=== PATIENT | female | born 1950 | race Caucasian/White ===

== ENCOUNTER 2017-11-10 07:27 | Inpatient (IN) | payer OTHER, MEDICARE ==
[~2017-11-10 07:27] MED LIST: POVIDONE-IODINE 20 ML in SODIUM CL IRRIG SOLUTION 500 ML IRR ONE; ROPIVACAINE 0.2% 80 MG, EPINEPHrine 0.2 MG, KETOROLAC TROMETHAMINE 30 MG in SYRINGE 0 ML IU ONE; TRANEXAMIC ACID 1,000 MG in NS 100 ML IV ONE
[2017-11-10] MEDS ORDERED: ceFAZolin 1 GM/5 ML SYR ONE (07:37)
[2017-11-10] MEDS ORDERED: FAMOTIDINE 20 MG TAB PO ONE (07:54)
[2017-11-10] MEDS ORDERED: DEXAMETHASONE 4 MG/ML VIAL IVP ONE (07:54)
[2017-11-10] MEDS ORDERED: GABAPENTIN 300 MG CAP PO ONE (07:54)
[2017-11-10] MEDS ORDERED: ACETAMINOPHEN 325 MG TAB PO ONE (07:54)
[2017-11-10] MEDS ORDERED: ONDANSETRON 4 MG/2 ML VIAL IVP ONE (07:54)
[2017-11-10] MEDS ORDERED: ceFAZolin 2 GM/DEXTROSE 100 ML IV ONE (07:54)
[2017-11-10] MEDS ORDERED: LR 1,000 ML IV ONE (07:56)
[2017-11-10] MEDS ORDERED: LIDOCAINE 1% 2 ML INJ ID PRN (07:56)
[2017-11-10] MEDS ORDERED: ceFAZolin 2 GM/SWFI 2 GM/20 ML SYR IVP ONE (08:30)
--- NOTE | 2017-11-10 08:59 | PDHPUP ---
History & Physical Update H&P update statement: This history and physical update is based on an assessment of the patient which was completed after admission or registration (within 24 hours), but prior to the surgery/procedure. H&P update: H&P reviewed & patient examined
--- NOTE | 2017-11-10 09:24 | PDANEPAE ---
ANE History of Present Illness right ELIEL ANE Past Medical History - Cardiovascular History Hx Hypertension: Yes Hx Arrhythmias: No Hx Chest Pain: No Hx Coronary Artery / Peripheral Vascular Disease: No Hx CHF / Valvular Disease: No Hx Palpitations: No - Pulmonary History Hx COPD: No Hx Asthma/Reactive Airway Disease: No Hx Recent Upper Respiratory Infection: No Hx Oxygen in Use at Home: No Hx Sleep Apnea: No Sleep Apnea Screening Result - Last Documented: Negative - Neurologic History Hx Cerebrovascular Accident: No Hx Seizures: No Hx Dementia: No - Endocrine History Hx Diabetes: Yes Endocrine History Comment: DM II - Renal History Hx Renal Disorders: No - Liver History Hx Hepatic Disorders: No Hepatic History Comment: RGEGIE - Neurological & Psychiatric Hx Hx Neurological and Psychiatric Disorders: No - Cancer History Hx Cancer: No - Congenital Disorder History Hx Congenital Disorders: No - GI History Hx Gastrointestinal Disorders: Yes Gastrointestinal History Comment: DIVERTICULITIS. ACID REFLUX - Other Health History Other Health History: NEG - Chronic Pain History Chronic Pain: Yes (R HIP) - Surgical History Prior Surgeries: CHOLECYSTECTOMY. HYSTERECTOMY. OOPHERECTOMY ANE Review of Systems Review of systems is: negative Review of Systems: - Exercise capacity Exercise capacity: >=4 METS METS (RN): 4 METS ANE Patient History - Allergies Allergies/Adverse Reactions: No Known Allergies Allergy (Verified 11/04/17 11:30) - Home Medications Home Medications: Aspirin [Aspirin 81mg (*)] 81 mg PO HS 11/04/17 [Last Taken 11/01/17] Atorvastatin Calcium [Lipitor 10 mg (*)] 10 mg PO HS 11/04/17 [Last Taken 21:30] Cholecalciferol Vit D3 [Vitamin D3 (*)] 5,000 units PO HS 11/04/17 [Last Taken 11/01/17] Herbals/Supplements -Info Only 1 ea PO DAILY 11/04/17 [Last Taken 11/09/17 21:30 ] Lisinopril/Hctz 10/12.5 mg [Zestoretic/Prinzide 10/12.5MG (*)] 1 ea PO HS [Last Taken 11/09/17 21:30] Multivitamins [Multivitamin (*)] 1 each PO HS 11/04/17 [Last Taken 11/09/17 21: 30] PARoxetine HCL [Paxil 30mg (*)] 30 mg PO HS 11/04/17 [Last Taken 11/09/17 21:30] Pantoprazole Sodium [Protonix 40mg (*)] 40 mg PO HS 11/04/17 [Last Taken 21:30] amLODIPine BESYLATE [Norvasc 5 mg (*)] 5 mg PO HS 11/04/17 [Last Taken 11/09/17 21:30] metFORMIN SR [Glucophage XR 500 mg (*)] 500 mg PO HS 11/04/17 [Last Taken ] - NPO status NPO Status: no food or drink >8 hours NPO Since - Liquids (Date): 11/09/17 NPO Since - Liquids (Time): 21:30 NPO Since - Solids (Date): 11/09/17 NPO Since - Solids (Time): 18:30 - Anes Hx Anes Hx: post operative nausea - Smoking Hx Smoking Status: Former smoker - Alcohol Use Alcohol Use: Occasionally - Family Anes Hx Family Anes Hx: none Family Hx Anesthesia Complications: NEG ANE Labs/Vital Signs - Vital Signs Blood Pressure: 119/78 Heart Rate: 79 Respiratory Rate: 16 O2 Sat (%): 93 Height: 156.21 cm Weight: 73.482 kg ANE Physical Exam - Airway Neck exam: FROM Mallampati Score: Class 2 - Pulmonary Pulmonary: no respiratory distress - Cardiovascular Cardiovascular: regular rate and rhythym - ASA Status ASA Status: II ANE Anesthesia Plan Anesthesia Plan: spinal
[2017-11-10] MEDS ORDERED: MIDAZOLAM 2 MG/2 ML VIAL IVP ONE (09:26)
[2017-11-10] MEDS ORDERED: MIDAZOLAM 2 MG/2 ML VIAL ONE (09:27)
[2017-11-10] MEDS ORDERED: LIDOCAINE 2% 5 ML SDV ONE (09:35)
[2017-11-10] MEDS ORDERED: PROPOFOL/EMULSION 500 MG/50 ML BOTTLE IV ONE (09:36)
[2017-11-10] MEDS ORDERED: PHENYLEPHRINE 10 MG/ML SDV ONE (10:22)
--- NOTE | 2017-11-10 11:04 | POSTOPPROG ---
Post Op Note Date of Operation: 11/10/17 Surgeon: Eusebio Alanis Manager Enterprise Content Management: Dennis Anesthesiologist: Dr. Aaron Gilman Anesthesia: IV Sedation, Spinal Post-op Diagnosis: Right hip severe degenerative arthritis. Procedure: Right total hip arthroplasty Inf/Abcess present in the surg proc area at time of surgery?: No EBL: [id number]
[2017-11-10] MEDS ORDERED: DIPHENOXYLATE/ATROPINE LOMOTIL 1 TAB PO PRN (11:28)
[2017-11-10] MEDS ORDERED: ONDANSETRON 4 MG/2 ML VIAL IVP PRN ×2 (11:28)
[2017-11-10] MEDS ORDERED: fentaNYL 100 MCG/2 ML INJ IVP PRN (11:28)
[2017-11-10] MEDS ORDERED: diphenhydrAMINE 25 MG CAP PO PRN (11:28)
[2017-11-10] MEDS ORDERED: MAGNESIUM HYDROXIDE 30 ML UDCUP PO PRN (11:28)
[2017-11-10] MEDS ORDERED: ACETAMINOPHEN 500 MG TAB PO PRN (11:28)
[2017-11-10] MEDS ORDERED: NALOXONE HCL 0.4 MG/ML INJ IVP PRN (11:28)
[2017-11-10] MEDS ORDERED: LACTULOSE 20 GM/30 ML UDCUP PO PRN (11:28)
[2017-11-10] MEDS ORDERED: NS 500 ML IV PRN (11:28)
[2017-11-10] MEDS ORDERED: traMADol 50 MG TAB PO PRN (11:28)
[2017-11-10] MEDS ORDERED: TEMAZEPAM 15 MG CAP PO PRN (11:28)
[2017-11-10] MEDS ORDERED: oxyCODONE IR 5 MG TAB PO PRN ×2 (11:28)
[2017-11-10] MEDS ORDERED: ONDANSETRON DISINTEGRATING 4 MG TAB PO PRN (11:28)
[2017-11-10] MEDS ORDERED: BISACODYL 10 MG SUPP PR PRN (11:28)
[2017-11-10] MEDS ORDERED: PROMETHAZINE HCL 25 MG SUPPR PR PRN (11:28)
[2017-11-10] MEDS ORDERED: ALBUTEROL 3 ML DEYVIAL IH PRN (11:28)
[2017-11-10] MEDS ORDERED: PROMETHAZINE HCL 25 MG/ML INJ IVP PRN ×2 (11:28)
[2017-11-10] MEDS ORDERED: POLYETHYLENE GLYCOL 3350 17 GM PKT PO PRN (11:28)
--- NOTE | 2017-11-10 11:28 | POSTANESTH ---
Post Anesthetic Evaluation Cardiovascular Status: Normal, Stable Respiratory Status: Normal, Stable Level of Consciousness/Mental Status: Moderately Sleepy Pain Control: Adequate, Prn Tx Ordered Nausea/Vomiting Control: Adequate, Prn Tx Ordered Complications Possibly Related to Anesthesia: None Noted
[2017-11-10] MEDS ORDERED: LR 1,000 ML IV SCH (11:30)
--- NOTE | 2017-11-10 11:38 | GOP ---
[f rep st] OPERATIVE REPORT DATE OF OPERATION: 11/10/2017 SURGEON: Eusebio Alanis MD MATERIAL HANDLING CREW SUPERVISOR: Kel Dial and Pete Alex. ANESTHESIA: A combination of Marcaine, spinal, and IV sedation. ANESTHESIOLOGIST: Aaron Gilman MD. PREOPERATIVE DIAGNOSIS: Right hip severe degenerative arthritis. POSTOPERATIVE DIAGNOSIS: Right hip severe degenerative arthritis. PROCEDURE PERFORMED: 11/10/2017, right total hip arthroplasty, ceramic femoral head on highly cross- linked polyethylene cup liner. FINDINGS: DESCRIPTION OF PROCEDURE: The patient was given 2 g of IV Ancef preoperatively within 60 minutes of surgery. She also received IV tranexamic acid at a dose of 1000 mg. She was placed on the operating room table and given spinal anesthesia with Marcaine by Dr. Gilman. She was then placed supine an d given IV sedation. A Rosado catheter was not used. She wore a GALLITO stocking and SCD on the nonopera tive leg. She was rolled to the left lateral decubitus position. The position was secured with the pegboard table attachment. An axillary roll was used, and all pressure points were carefully padded. I was careful to lock her pelvis in a rigid vertical position. Her perineum was isolated with plas tic adhesive drapes. The right hip and right lower extremity were prepped with ChloraPrep. They wer e draped free using sterile sheets, stockinette, and Ioban plastic drape. The [employer] time-out was performed to verify the correct patient identity and the c orrect surgical side and site. The [place] time-out was also performed. I made a 5-6 inch straight oblique posterolateral hip skin incision. The subcutaneous tissues were s harply divided, and hemostasis was obtained using electrocautery. Her fascia tacho was identified and split along the axis of its fibers. I then curved posteriorly and proximally, and split the fascia of the gluteus betty and bluntly split the muscle fibers in line with their orientation. The Eric george self-retaining retractor was inserted. Her sciatic nerve was located, partially exposed, and pro tected throughout the procedure. The external rotators and the posterior hip capsule were divided as separate layers at the base of the femoral neck, tagged, and reflected posteriorly. A smooth 8-inch Steinmann pin was inserted vertically into the ilium, superior to the acetabulum. An 8-inch drill b it was inserted vertically into the greater trochanter and parallel to the first pin. The distance b etween the 2 was measured for leg length reference. Her femoral head was dislocated posteriorly. Se hermila degenerative changes were present on the femoral head. She had a very small femoral head and it measured 44 mm in diameter. Her femoral neck was osteotomized at the appropriate level and inclinat ion. I was careful to preserve all the posterior capsule and most of the anterior capsule. The remnant of her damaged labrum was excised. The femur was prepared first. This allowed me to solar installer pv the amount of natural femoral neck anteversio n. She had approximately 12-15 degrees of natural femoral neck anteversion. The canal was opened la terally with a box chisel. I power reamed and hand broached sequentially up to size 3. I used the S tryker Accolade II standard offset size 3 broach as a trial stem. I was careful to lateralize adequa tely. Appropriate retractors were inserted to expose the acetabulum. The acetabulum was reamed sequentiall y up to 49 mm. I selected a 50 mm Madelin Trident 2 cluster hole hemispherical shell. This was tap ped securely into place in the proper degree of inclination anteversion. I used the RUEL and other fab[place]ola [place] landmarks to help me properly orient the cup. I performed a series of trial reductions to determine length and stability. I took an intraoperative cross-table AP pelvis x-ray. It confirmed proper positioning and sizing of the size 3 stem. Good p osition of the cup and appropriate leg length. She was a couple of mm short preoperatively. The 10 degree lip Madelin X3 highly cross-linked polyethylene liner was inserted and tapped securely into pl josiah. The Madelin Accolade II standard offset stem in size 3 was inserted press-fit and was very tigh t. I did 1 final trial reduction and confirmed that the 0 neck length with a 32 mm head was the prop er combination. The Maxwelton Biolox Delta ceramic head with an outside diameter of 32 mm and a neck l ength of 0 mm was tapped securely onto the clean trunnion. Her acetabulum was irrigated, cleaned, an d the hip was reduced 1 final time. She had excellent anterior and posterior stability and appropria te length. 40 mL of the joint anesthetic cocktail were injected into the capsule, the deep musculature, and the subcutaneous tissues around the skin edges. The joint was thoroughly irrigated 1 final time with a d ilute Betadine solution. Her sciatic nerve was reinspected and looked unharmed. The external rotators and the posterior hip capsule were repaired in separate layers with #2 FiberWir e sutures through drill holes in the greater trochanter. Her fascia tacho was closed first with 2 fig [id number] #2 FiberWire sutures followed by a running #2 barbed Ethicon Stratafix PDO suture. The subcutaneous tissues were closed with a running 0 barbed Ethicon Stratafix Monoderm suture. The skin was closed with a running 3-0 barbed Ethicon Stratafix Monoderm subcuticular suture. The skin edges were reapproximated and sealed with Dermabond glue. The wound was covered with a large piece of memo rile waterproof Mepilex surgical dressing. The Mepilex sacral dressing was also applied. A long-leg GALLITO stocking and SCD were applied to her right lower extremity. She wore a stocking and S CD on the opposite leg during the procedure. An abduction pillow was placed between her knees. She was awakened from anesthesia and rolled to the supine position on her [facility]. She was taken to PACU in satisfactory condition. There were no recognized intraoperative complications. The estimated blood loss about 400 mL. The sponge and needle count were correct on 2 occasions. I used a Maxwelton Trident 2 hemispherical cluster hole acetabular shell with an outside diameter of 50 mm. The liner was a Madelin X3 10-degree lipped highly cross-linked liner with an inside diameter o f 32 mm. The femoral component was a press-fit Maxwelton standard offset Accolade II stem in size 3. Her femoral head was a Madelin Biolox Delta ceramic head with a 0 neck length and a 32 mm outside onelia meter. Kel Dial and Pete Alex acted as surgical assistants. Their assistance was a medical necess ity for safe completion of the procedure. /[id number]/MODL
--- NOTE | 2017-11-10 12:30 | PDMN ---
Medical Necessity Medical necessity: Mcare IP only surgery; cpt 22423 R ELIEL
[2017-11-10] MEDS: ACETAMINOPHEN 325 MG TAB PO SCH ×3 (13:51→23:58)
[2017-11-10] MEDS: KETOROLAC 15 MG/1 ML SDV IVP SCH ×3 (13:51→23:59)
[2017-11-10] MEDS ORDERED: ceFAZolin 2 GM/DEXTROSE 100 ML IV SCH (14:00)
[2017-11-10] MEDS: ATORVASTATIN CALCIUM 10 MG TAB PO SCH (16:30)
[2017-11-10] MEDS: ceFAZolin 2 GM/SWFI 2 GM/20 ML SYR IVP SCH (17:20)
[2017-11-10] MEDS ORDERED: metFORMIN SR 500 MG TAB PO SCH (21:00)
[2017-11-10] MEDS ORDERED: LISINOPRIL/HCTZ 10/12.5 MG 1 EA TAB PO SCH (21:00)
[2017-11-10] MEDS ORDERED: PANTOPRAZOLE SODIUM 40 MG TAB PO SCH (21:00)
[2017-11-10] MEDS ORDERED: amLODIPine BESYLATE 5 MG TAB PO SCH (21:00)
[2017-11-10] MEDS ORDERED: FAMOTIDINE 20 MG TAB PO SCH (21:00)
[2017-11-10] MEDS: SENNOSIDES/DOCUSATE SODIUM TAB PO SCH (21:13)
[2017-11-10] MEDS: CYCLOBENZAPRINE 10 MG TAB PO PRN (21:13)
[2017-11-10] MEDS: ASPIRIN 325 MG TAB PO SCH (21:16)
[2017-11-11] MEDS: ceFAZolin 2 GM/SWFI 2 GM/20 ML SYR IVP SCH (02:28)
[2017-11-11] MEDS: ACETAMINOPHEN 325 MG TAB PO SCH (06:00)
[2017-11-11] MEDS: KETOROLAC 15 MG/1 ML SDV IVP SCH (06:00)
--- NOTE | 2017-11-11 07:38 | SOAPPROG ---
SOAP Progress Note Assessment/Plan: Assessment: Afebrile. Awake and alert. Mild pain. She has been up and walking in the room. Her dressing is dry. Sciatic nerve intact. Postop H&H are good. Postop films look excellent. Plan: Continue physical therapy today. Discharged later today. She will have home physical therapy. Continue aspirin for 21 days. 11/11/17 07:37 Objective: Vital Signs Temp Pulse Resp BP Pulse Ox 36.6 C 72 16 95/54 L 98 11/11/17 05:20 11/11/17 05:20 11/11/17 05:20 11/11/17 05:20 11/11/17 05:20 Laboratory Results 11/11/17 04:51 11/10/17 11/11/17 11/12/17 05:59 05:59 05:59 Intake Total 1350 Output Total 2200 Balance -850 ICD10 Worksheet Patient Problems: Problems Problem Status Onset Osteoarthritis of right hip Acute
--- NOTE | 2017-11-11 07:39 | PDIAF ---
- Diagnosis Diagnosis: right hip OA Code Status: Full Code - Medication Management Discharge Medications: Medications to Continue on Transfer Cholecalciferol Vit D3 [Vitamin D3 (*)] 5,000 units PO HS 11/04/17 [Last Taken 11/01/17] Herbals/Supplements -Info Only 1 ea PO DAILY 11/04/17 [Last Taken 11/09/17 21:30 ] Lisinopril/Hctz 10/12.5 mg [Zestoretic/Prinzide 10/12.5MG (*)] 1 ea PO HS [Last Taken 11/09/17 21:30] Multivitamins [Multivitamin (*)] 1 each PO HS 11/04/17 [Last Taken 11/09/17 21: 30] PARoxetine HCL [Paxil 30mg (*)] 30 mg PO HS 11/04/17 [Last Taken 11/09/17 21:30] Pantoprazole Sodium [Protonix 40mg (*)] 40 mg PO HS 11/04/17 [Last Taken 21:30] amLODIPine BESYLATE [Norvasc 5 mg (*)] 5 mg PO HS 11/04/17 [Last Taken 11/09/17 21:30] metFORMIN SR [Glucophage XR 500 mg (*)] 500 mg PO HS 11/04/17 [Last Taken ] Acetaminophen [Tylenol 325mg (*)] 650 mg PO Q6HRS tab 11/11/17 [Last Taken Unknown] Aspirin [Aspirin 325 mg (*)] 325 mg PO DAILY tab 11/11/17 [Last Taken Unknown] Ondansetron Odt [Zofran Odt 4 mg (*)] 4 mg PO Q4HRS PRN tab 11/11/17 [Last Taken Unknown] Sennosides/Docusate Sodium [Senokot-S] 1 - 2 tab PO BID tab 11/11/17 [Last Taken Unknown] celeCOXIB [Celebrex (*)] 200 mg PO DAILY cap 11/11/17 [Last Taken Unknown] oxyCODONE IR [Oxycodone Ir (*)] 5 - 10 mg PO Q3HRS PRN tab 11/11/17 [Last Taken Unknown] traMADol [Ultram 50 mg (*)] 50 mg PO Q6HRS PRN tab 11/11/17 [Last Taken Unknown ] Discharge Medications: Refer to the Discharge Home Medication list for PRN reason. PICC Care - Routine: N/A - Orders Services needed: Home Care, Physical Therapy Home Care Face to Face: I certify that this patient was under my care and that I had the required [id number] encounter meeting the encounter requirements on the discharge day. My findings support the fact that the patient is homebound as defined in Home Care Face to Face Continued: CMS Chapter 7 Medicare Benefits Manual 30.1.1 , The condition of the patient is such that there exists a normal inability to leave home and consequently, leaving home would require a considerable and taxing effort. Diet Recommendation: no restrictions on diet Diet Texture: Regular Texture Diet Rosado: Not applicable Seng Stockings Discontinue Date: 1 week Wound Care Instructions: keep clean and dry. you may shower. Activity/Weight Bearing Restrictions: as tolerated. Additional Instructions: Pt. will follow-up with her PCP regarding Pneumococcal vaccine. - Follow Up Care Current Providers and Referrals: ISSAC LEMUS [Primary Care Provider] - Eusebio Alanis MD [Medical Doctor] - 12/06/17
[2017-11-11] MEDS: SENNOSIDES/DOCUSATE SODIUM TAB PO SCH (07:48)
[2017-11-11] MEDS: ASPIRIN 325 MG TAB PO SCH (07:49)
[2017-11-11] MEDS: CYCLOBENZAPRINE 10 MG TAB PO PRN (07:49)
--- NOTE | 2017-11-11 07:57 | GDS ---
[f rep st] DISCHARGE SUMMARY ADMISSION DIAGNOSIS: Right hip severe degenerative arthritis. DISCHARGE DIAGNOSIS: Right hip severe degenerative arthritis. PROCEDURE PERFORMED: 11/10/2017, right total hip arthroplasty, ceramic femoral head on highly cross- linked polyethylene cup liner. POSTOPERATIVE COMPLICATIONS: None. CONDITION ON DISCHARGE: Improved. DESCRIPTION OF HOSPITAL COURSE: The patient was admitted to the hospital the morning of surgery. He r preoperative CBC was normal except for a platelet count of 427,000. Electrolytes, BUN and creatini ne were normal. The same day, under a combination of Marcaine, spinal, and IV sedation, she underwen t a right total hip arthroplasty. Postoperatively, she was treated with multimodal DVT prophylaxis, including aspirin. On the first postoperative day, her hemoglobin and hematocrit were 10.6 and 31.8. She was seen by Physical Therapy and made good progress with ambulation and stairs. By the time of discharge, she was afebrile, her wound was clean and dry, and she was independent walking with a wal ker. DISPOSITION: She is discharged to her home in the care of her . She will have home physical therapy. Continue aspirin 325 mg p.o. daily for 21 days. She has prescriptions for oxycodone, trama dol and Celebrex. She may progress to full weightbearing on the right as tolerated. Use an abductio n pillow in bed for 3 weeks. Use GALLITO stockings for 1 week. I will see her back in the office on Nov. If there are any problems, she is to call me at the office. /[id number]/MODL
[2017-11-11 08:29] VITALS: BP 102/61
--- NOTE | 2017-11-11 11:55 | ASDISCHSUM ---
Discharge Information Plan Status:Home with Home Health Medically Cleared to Leave: Discharge Date:11/11/2017 10:25 AM CM D/C Disposition:Home Health Service [facility] D/C Disposition:[id number] Projected Discharge Date:11/11/2017 11:00 AM Transportation at D/C:Family Discharge Delay Reason: Follow-Up Date:11/11/2017 11:00 AM Discharge Slot: Final Diagnosis: Placement Information Referral Type:*Home Health Care Services Referral ID:[id number] Provider Name:[facility] Address 1:[address] [address] Address 2: City:[place] Selection Factors: State:[place] Patient Contact Information Contact Name:LISA Relationship: Address: Work Phone: City: [facility] Phone: State/Zip Code: Email: Financial Information Financial Class:Medicare Primary Plan Desc:MEDICARE OUTPATIENT Primary Plan Number:[id number] Secondary Plan Desc:[employer]/MDR SUPPLEMENT Secondary Plan Number:[id number] Assessment Information [facility] CM Progress Note CM Note CM Note Notes: Pt s/p OA of hip. Pt medically stable for d/c with [facility] PT and spouse support. [facility] Date Signed: 11/11/2017 11:54 AM Electronically Signed By:MAURICE Deluca Intervention Information
--- NOTE | 2017-11-11 11:55 | ASMTCMCOM ---
CM Note CM Note Notes: Pt s/p OA of hip. Pt medically stable for d/c with [facility] PT and spouse support. Orders sent in [facility]. Date Signed: 11/11/2017 11:54 AM Electronically Signed By:MAURICE Deluca
== END 2017-11-11 10:25 | disposition home health service (06) | DRG 470 ==
LOC: F3N 07:27
PROVIDERS: ADMIT Orthopaedic Surgery; ATTEND Orthopaedic Surgery
PROC: 0SR904Z Replacement of Right Hip Joint with Ceramic on Polyethylene Synthetic Substitute, Open Approach (ICD-10-PCS; principal; 2017-11-10 09:30)
DX: M16.11 Unilateral primary osteoarthritis, right hip (principal); E11.9 Type 2 diabetes mellitus without complications; E78.00 Pure hypercholesterolemia, unspecified; K21.9 Gastro-esophageal reflux disease without esophagitis; I10 Essential (primary) hypertension
CPT/HCPCS: 97116-GP; 97161-GP; 97165-GO; G8978-GP-CJ; G8979-GP-CI; G8980-GP-CI; G8987-GO-CI; G8988-GO-CI; G8989-GO-CI; J0171; J0690; J1100; J1885; J2250; J2370; J2405; J2704; J2795